=== PATIENT | male | born 1935 | race Caucasian/White ===

== ENCOUNTER 2022-06-07 08:21 | Day surgery (SDC) | payer MEDICARE, OTHER ==
[2022-06-03 12:46] LABS: BASOPHILS % (AUTO) 0.5 % (0-1); EOSINOPHILS # (AUTO) 0.2 X10'3 (0-0.9); EOSINOPHILS % (AUTO) 3.3 % (0-6); LYMPHOCYTES # (AUTO) 1.8 X10'3 (1.1-4.8); LYMPHOCYTES % (AUTO) 34.3 % (21-51); MEAN CORPUSCULAR HEMOGLOBIN 33.7 PG (27.0-31.0); MEAN CORPUSCULAR HGB CONC 33.2 g/dL (33.0-36.5); MEAN CORPUSCULAR VOLUME 101.4 FL (78-98); MEAN PLATELET VOLUME 7.9 FL (7.4-10.4); MONOCYTES # (AUTO) 0.7 X10'3 (0-0.9); MONOCYTES % (AUTO) 12.6 % (2-12); NEUTROPHILS # (AUTO) 2.6 X10'3 (1.8-7.7); NEUTROPHILS % (AUTO) 49.3 % (42-75); PRE OP HEMATOCRIT 34.6 % (42.0-52.0); PRE OP HEMOGLOBIN 11.5 g/dL (14.0-17.9); PRE OP PLATELET COUNT 172 X10'3 (140-440); RED BLOOD COUNT 3.41 X10'6 (4.70-6.10); RED CELL DISTRIBUTION WIDTH 12.7 % (11.5-14.5)
[2022-06-03 13:01] LABS: ALBUMIN 3.6 G/DL (3.4-5.0); ALKALINE PHOSPHATASE 65 IU/L (46-116); BLOOD UREA NITROGEN 17 MG/DL (7-18); BUN/CREATININE RATIO 17.5 (5.4-32.0); CALCIUM 9.2 MG/DL (8.5-10.1); CHLORIDE 107 MMOL/L (99-107); CREATININE 0.97 MG/DL (0.60-1.10); PRE OP ALT 21 U/L (30-65); PRE OP ANION GAP 7 (8-16); PRE OP AST 19 U/L (10-37); PRE OP BILIRUB, TOTAL 0.5 MG/DL (0.0-1.0); PRE OP GLUCOSE 93 MG/DL (70-104); PRE OP POTASSIUM 4.7 MMOL/L (3.4-5.1); PRE OP SODIUM 141 MMOL/L (135-145); TOTAL CARBON DIOXIDE 26.9 MMOL/L (24-32); TOTAL PROTEIN 7.3 G/DL (6.4-8.2); eGFR 73 ML/MIN
[~2022-06-07] VITALS: Ht 180.3 cm; Wt 123.0 kg
[2022-06-07] VITALS (8 sets, daily range): BP systolic 92–116; BP diastolic 53–65
[~2022-06-07 08:21] MED LIST: ATOR20TA66 PO; BETA1TAB18 PO; CHOL20002 PO; CYAN-34 PO; FINA5TAB11 PO; FLUT15.810 BOTHNARES; LEVO25TA7 PO; LISI40TA13 PO; MULT-1085 PO; ceFAZolin inj. 3,000 MG in normal saline 100ml IV soln 100 ML IV ONE; famotidine 20mg tablet PO ONE; ringers solution, lacted 1,000 ML IV SCH
[2022-06-07] MEDS ORDERED: BUPIVAcaine 0.5% inj/PF 30 ML ONE (10:59)
[2022-06-07] MEDS ORDERED: LIDOcaine 0.5% (5mg/ml) 50ml vial ONE (11:02)
[2022-06-07] MEDS ORDERED: fentaNYL/PF 50MCG/1 ML 2ML syringe ONE (11:04)
[2022-06-07] MEDS ORDERED: midazolam 1 mg/ML 2ml injection ONE ×2 (11:29→11:30)
[2022-06-07] MEDS ORDERED: BUPIVAcaine 0.5% inj/PF 30 ml vial IJ ONE (11:30)
--- NOTE | 2022-06-07 11:50 | NUR ---
Received from OR via , accompanied by Anesthesiologist BENITA AND OR NURSE and report given by Anesthesiolgist. PT IS A/O X4. DENIES PAIN OR DISCOMFORT. NATANAEL WRAP TO LEFT ELBOW AND LEFT WRIST. ICE APPLIED. Addendum: 06/07/22 at 1246 by Marlyn Tirado RN Amended: Links added.
--- NOTE | 2022-06-07 13:00 | NUR ---
I HAVE REVIEWED D/C INSTRUCTIONS WITH PATIENT AND THEY HAVE VERBALIZED UNDERSTANDING OF INSTRUCTIONS. PATIENT D/C HOME WITH ALL BELONGINGS AND FAMILY GAVE TRANSPORT Addendum: 06/07/22 at 1356 by Marlyn Tirado RN Amended: Links added.
== END 2022-06-07 13:00 | disposition home or self-care (01) ==
LOC: PAS 08:21
PROVIDERS: ATTEND Orthopaedic Surgery Hand Surgery
DX: G56.02 Carpal tunnel syndrome, left upper limb (principal); G56.22 Lesion of ulnar nerve, left upper limb; I10 Essential (primary) hypertension; I73.9 Peripheral vascular disease, unspecified; Z79.899 Other long term (current) drug therapy; Z98.890 Other specified postprocedural states; Z96.653 Presence of artificial knee joint, bilateral; Z87.891 Personal history of nicotine dependence; M19.90 Unspecified osteoarthritis, unspecified site
CPT/HCPCS: 36415; 64718; 64721; 80053; 82948; 85025; 93005; J0690; J2250; J3010; J3490; J7030; J7120; S0020; Z7506; Z7512; A4215; A6449

== ENCOUNTER 2023-01-03 10:17 | Outpatient (CLI) | payer OTHER ==
[~2023-01-03 10:17] MED LIST changes: -ceFAZolin inj. 3,000 MG in normal saline 100ml IV soln 100 ML IV ONE; -famotidine 20mg tablet PO ONE; -ringers solution, lacted 1,000 ML IV SCH
[2023-01-03] MEDS ORDERED: IODIXANOL 320 MG/ML INFUS..BTL 100ML IV ONE (11:21)
== END 2023-01-03 23:59 | disposition home or self-care (01) ==
LOC: RAD 10:17
PROVIDERS: ATTEND Internal Medicine Cardiovascular Disease
DX: I35.8 Other nonrheumatic aortic valve disorders (principal); R06.02 Shortness of breath; I65.29 Occlusion and stenosis of unspecified carotid artery; I70.0 Atherosclerosis of aorta
CPT/HCPCS: 71046; 71275; 74174; 94010; 94727; 94729; J3490; Q9967

== ENCOUNTER 2023-01-09 11:52 | Outpatient (CLI) | payer OTHER ==
[2023-01-03 10:57] LABS: BASOPHILS % (AUTO) 0.4 % (0-1); EOSINOPHILS # (AUTO) 0.1 X10'3 (0-0.9); HEMATOCRIT 35.2 % (42.0-52.0); HEMOGLOBIN 11.8 g/dl (14.0-17.9); LYMPHOCYTES # (AUTO) 1.5 X10'3 (1.1-4.8); LYMPHOCYTES % (AUTO) 29.5 % (21-51); MEAN CORPUSCULAR HEMOGLOBIN 33.3 PG (27.0-31.0); MEAN CORPUSCULAR HGB CONC 33.4 g/dL (33.0-36.5); MEAN CORPUSCULAR VOLUME 99.9 FL (78-98); MEAN PLATELET VOLUME 7.6 FL (7.4-10.4); MONOCYTES # (AUTO) 0.6 X10'3 (0-0.9); MONOCYTES % (AUTO) 11.7 % (2-12); NEUTROPHILS # (AUTO) 2.9 X10'3 (1.8-7.7); NEUTROPHILS % (AUTO) 56.4 % (42-75); PLATELET COUNT 168 X10'3 (140-440); RED BLOOD COUNT 3.53 X10'6 (4.70-6.10); RED CELL DISTRIBUTION WIDTH 13.5 % (11.5-14.5); WHITE BLOOD COUNT 5.1 X10'3 (4.5-11.0)
[2023-01-03 11:05] LABS: APTT 27 SECONDS (22-32)
[2023-01-03 11:16] LABS: ALANINE AMINOTRANSFERASE 25 U/L (12-78); ALBUMIN 3.8 G/DL (3.4-5.0); ALKALINE PHOSPHATASE 69 IU/L (46-116); ANION GAP 9 (8-16); ASPARTATE AMINO TRANSFERASE 23 U/L (10-37); BILIRUBIN,TOTAL 0.9 MG/DL (0.1-1.0); BLOOD UREA NITROGEN 22 MG/DL (7-18); BUN/CREATININE RATIO 18.2 (10.0-20.0); CALCIUM 9.2 MG/DL (8.5-10.1); CHLORIDE 105 MMOL/L (99-107); CREATININE 1.21 MG/DL (0.60-1.10); GLUCOSE 96 MG/DL (70-104); POTASSIUM 4.2 MMOL/L (3.5-5.1); SODIUM 139 MMOL/L (135-145); TOTAL CARBON DIOXIDE 25.5 MMOL/L (24-32); TOTAL PROTEIN 7.5 G/DL (6.4-8.2); eGFR 57 ML/MIN
[~2023-01-09] VITALS: Ht 180.3 cm; Wt 119.3 kg
[2023-01-09 12:39] LABS: BASOPHILS % (AUTO) 0.4 % (0-1); EOSINOPHILS # (AUTO) 0.1 X10'3 (0-0.9); HEMATOCRIT 35.5 % (42.0-52.0); HEMOGLOBIN 11.9 g/dl (14.0-17.9); LYMPHOCYTES # (AUTO) 1.7 X10'3 (1.1-4.8); LYMPHOCYTES % (AUTO) 35.4 % (21-51); MEAN CORPUSCULAR HEMOGLOBIN 33.6 PG (27.0-31.0); MEAN CORPUSCULAR HGB CONC 33.6 g/dL (33.0-36.5); MEAN PLATELET VOLUME 7.4 FL (7.4-10.4); MONOCYTES # (AUTO) 0.7 X10'3 (0-0.9); MONOCYTES % (AUTO) 14.4 % (2-12); NEUTROPHILS # (AUTO) 2.2 X10'3 (1.8-7.7); NEUTROPHILS % (AUTO) 46.8 % (42-75); PLATELET COUNT 172 X10'3 (140-440); RED BLOOD COUNT 3.55 X10'6 (4.70-6.10); RED CELL DISTRIBUTION WIDTH 13.2 % (11.5-14.5); WHITE BLOOD COUNT 4.8 X10'3 (4.5-11.0)
[2023-01-09 12:50] LABS: APTT 27 SECONDS (22-32)
[2023-01-09 12:57] LABS: ALBUMIN 3.9 G/DL (3.4-5.0); ANION GAP 8 (8-16); BLOOD UREA NITROGEN 19 MG/DL (7-18); BUN/CREATININE RATIO 18.8 (10.0-20.0); CHLORIDE 106 MMOL/L (99-107); CHOLESTEROL 143 MG/DL (0-200); CREATININE 1.01 MG/DL (0.60-1.10); GLUCOSE 97 MG/DL (70-104); HDL CHOLESTEROL 48 MG/DL (35-60); LDL CHOLESTEROL 75 MG/DL (50-100); POTASSIUM 4.5 MMOL/L (3.5-5.1); SODIUM 141 MMOL/L (135-145); TOTAL CARBON DIOXIDE 27.4 MMOL/L (24-32); TRIGLYCERIDES 62 MG/DL (20-135); eGFR 70 ML/MIN
[2023-01-09 13:36] VITALS: BP 123/53
--- NOTE | 2023-01-09 13:40 | NUR ---
Patient and Carol were in the [facility] clinic today to consult with Dr. Alfred Selby and Dr. Garza. [facility] Walk test completed. Vital signs measured. Patient education reviewed and questions answered.
== END 2023-01-09 23:59 | disposition home or self-care (01) ==
LOC: TAVR 11:52
PROVIDERS: ATTEND Internal Medicine Cardiovascular Disease
DX: Z01.810 Encounter for preprocedural cardiovascular examination (principal); I35.0 Nonrheumatic aortic (valve) stenosis; R06.02 Shortness of breath; I65.29 Occlusion and stenosis of unspecified carotid artery; E78.5 Hyperlipidemia, unspecified; I10 Essential (primary) hypertension
CPT/HCPCS: 36415; 80048; 80053; 80061; 83880; 85025; 85610; 85730

== ENCOUNTER 2023-01-14 11:55 | Day surgery (SDC) | payer OTHER ==
[~2023-01-14] VITALS: Ht 180.3 cm; Wt 118.6 kg
[2023-01-14] MEDS ORDERED: normal saline 1,000 ML IV SCH (12:10)
[2023-01-14] MEDS ORDERED: diphenhydrAMINE 25mg capsule PO PRN (12:10)
[2023-01-14] MEDS ORDERED: LORazepam 0.5 MG tablet PO PRN (12:10)
[2023-01-14 12:13] VITALS: BP 118/57
[2023-01-14] MEDS ORDERED: CLOP75TA34 PO (12:43)
[2023-01-14] MEDS ORDERED: ATOR40TA PO (12:43)
[2023-01-14] MEDS ORDERED: FLO0.4C PO (12:44)
[2023-01-14] MEDS ORDERED: verapamil 2.5 mg/ml inj IV ONE (14:47)
[2023-01-14] MEDS ORDERED: fentaNYL/PF 50MCG/1 ML 2ML syringe ONE ×2 (14:47→15:50)
[2023-01-14] MEDS ORDERED: heparin 1,000unit/ml 10ml vial 10 ML ONE ×2 (14:47→16:23)
[2023-01-14] MEDS ORDERED: midazolam 1 mg/ML 2ml injection ONE ×4 (14:47→16:37)
[2023-01-14] MEDS ORDERED: LIDOcaine 1% (10mg/ml) 2ml vial ONE (14:47)
[2023-01-14] MEDS ORDERED: iohexol 350MG/ML 100ml bottle IV ONE ×4 (14:47→16:49)
[2023-01-14] MEDS ORDERED: nitroGLYCERIN-Tridil 50MG/D5W 250 ML IV ONE (14:48)
[2023-01-14 16:10] LABS: ISTAT HGB ART 10.9 g/dl (14.0-17.9); ISTAT Hct ART 32 %PCV (42-52); ISTAT O2 SATURATION ARTERIAL 93 % (95-98); ISTAT SOURCE ART
[2023-01-14] MEDS ORDERED: heparin 1,000 UNITS/NS 500ml 500 ML ONE (16:14)
[2023-01-14] MEDS ORDERED: aspirin 325mg tablet ONE (17:01)
[2023-01-14] MEDS ORDERED: clopidogrel 300mg tablet ONE (17:01)
[2023-01-14 17:28] VITALS: BP 122/54
[2023-01-14 17:44] VITALS: BP 138/70
[2023-01-14 17:58] VITALS: BP 119/56
[2023-01-14] MEDS ORDERED: HYDROcodone/acetaminophen 10/325mg tab PO PRN (18:00)
[2023-01-14] MEDS ORDERED: HYDROcodone/acetaminophen 5mg/325mg tablet PO PRN (18:00)
[2023-01-14 18:14] VITALS: BP 139/58
[2023-01-14 18:28] VITALS: BP 132/64
[2023-01-15 08:12] LABS: ISTAT Hct MIX 32 %PCV (42-52); ISTAT O2 SATURATION MIX VENOUS 62 % (60-80); ISTAT SOURCE VEN
== END 2023-01-14 19:12 | disposition home or self-care (01) ==
LOC: SSTAY O 11:55
PROVIDERS: ATTEND Student in an Organized Health Care Education/Training Program
DX: I08.0 Rheumatic disorders of both mitral and aortic valves (principal); I10 Essential (primary) hypertension; E78.5 Hyperlipidemia, unspecified; E66.9 Obesity, unspecified; Z68.36 Body mass index [BMI] 36.0-36.9, adult; E03.9 Hypothyroidism, unspecified; I87.2 Venous insufficiency (chronic) (peripheral); E53.8 Deficiency of other specified B group vitamins; E55.9 Vitamin D deficiency, unspecified; H54.8 Legal blindness, as defined in USA; Z85.46 Personal history of malignant neoplasm of prostate; Z86.73 Personal history of transient ischemic attack (TIA), and cerebral infarction without residual deficits; Z79.899 Other long term (current) drug therapy; Z79.01 Long term (current) use of anticoagulants
CPT/HCPCS: 82803; 85014; 93456; 99152; 99153; C1874; C9600; J1644; J2250; J3010; J3490; J7030; Q0163; Q9967; A6258; A6449; C1725; C1751; C1769; C1894

== ENCOUNTER 2023-07-21 06:40 | Day surgery (SDC) | payer OTHER ==
[2023-07-18 10:39] LABS: BASOPHILS % (AUTO) 0.3 % (0-1); EOSINOPHILS # (AUTO) 0.1 X10'3 (0-0.9); EOSINOPHILS % (AUTO) 2.3 % (0-6); LYMPHOCYTES # (AUTO) 1.4 X10'3 (1.1-4.8); LYMPHOCYTES % (AUTO) 24.8 % (21-51); MEAN CORPUSCULAR HEMOGLOBIN 34.5 PG (27.0-31.0); MEAN CORPUSCULAR VOLUME 101.5 FL (78-98); MEAN PLATELET VOLUME 8.1 FL (7.4-10.4); MONOCYTES # (AUTO) 0.6 X10'3 (0-0.9); MONOCYTES % (AUTO) 11.5 % (2-12); NEUTROPHILS # (AUTO) 3.4 X10'3 (1.8-7.7); NEUTROPHILS % (AUTO) 61.1 % (42-75); PRE OP HEMATOCRIT 32.6 % (42.0-52.0); PRE OP HEMOGLOBIN 11.1 g/dL (14.0-17.9); PRE OP PLATELET COUNT 154 X10'3 (140-440); PRE OP WHITE BLOOD COUNT 5.6 10'3 (4.8-10.8); RED BLOOD COUNT 3.21 X10'6 (4.70-6.10); RED CELL DISTRIBUTION WIDTH 13.7 % (11.5-14.5)
[2023-07-18 10:56] LABS: ALBUMIN 3.7 G/DL (3.4-5.0); ALBUMIN/GLOBULIN RATIO 0.9 (1.1-1.5); ALKALINE PHOSPHATASE 64 IU/L (46-116); BLOOD UREA NITROGEN 26 MG/DL (7-18); CALCIUM 9.1 MG/DL (8.5-10.1); CHLORIDE 106 MMOL/L (99-107); CREATININE 1.18 MG/DL (0.60-1.10); PRE OP ALT 19 U/L (30-65); PRE OP ANION GAP 5 (8-16); PRE OP AST 28 U/L (10-37); PRE OP BILIRUB, TOTAL 1.2 MG/DL (0.0-1.0); PRE OP GLUCOSE 95 MG/DL (70-104); PRE OP POTASSIUM 4.6 MMOL/L (3.4-5.1); PRE OP SODIUM 139 MMOL/L (135-145); TOTAL CARBON DIOXIDE 27.9 MMOL/L (24-32); TOTAL PROTEIN 7.6 G/DL (6.4-8.2); eGFR 58 ML/MIN
[2023-07-21] VITALS (9 sets, daily range): BP systolic 104–132; BP diastolic 57–87; PULSE 69–97; RESP 11–16; TEMP 97.8; O2SAT 92–99
[~2023-07-21] VITALS: Ht 180.3 cm; Wt 122.1 kg
[~2023-07-21 06:40] MED LIST changes: +ASPI-529 PO; -ATOR20TA66 PO; +ATOR40TA PO; -BETA1TAB18 PO; -CYAN-34 PO; +CYAN-50 PO; +FLO0.4C PO; -FLUT15.810 BOTHNARES; +VIT1TAB.13; +cefazolin 2gm/D5W 100mL 100 ML IV ONE; +famotidine 20mg tablet PO ONE; +ringers solution, lacted 1,000 ML IV SCH
[2023-07-21] MEDS ORDERED: proCHLORperazine 10 MG/2 ml inj IV PRN (08:25)
[2023-07-21] MEDS ORDERED: labetalol 20mg/4ml (5mg/ml) syringe IV PRN (08:25)
[2023-07-21] MEDS ORDERED: meperidine/PF 25mg/ml syringe IV PRN ×3 (08:25)
[2023-07-21] MEDS ORDERED: hydrALAZINE 20mg/ml inj. IV PRN (08:25)
[2023-07-21] MEDS ORDERED: ringers solution, lacted 1,000 ML IV SCH (08:25)
[2023-07-21] MEDS ORDERED: ondansetron/PF 4mg/2ml inj IV PRN (08:25)
[2023-07-21] MEDS ORDERED: morphine 2 MG/ML inj. syringe IV PRN (08:25)
[2023-07-21] MEDS ORDERED: morphine 4 MG/ML inj SYRINge IV PRN (08:25)
[2023-07-21] MEDS ORDERED: acetaminophen 1,000mg/100ml IV 100 ML IV ONE (08:25)
[2023-07-21] MEDS ORDERED: BUPIVAcaine/PF 2.5mg/ml (0.25%) 10ml vial ONE ×2 (09:14→09:39)
[2023-07-21] MEDS ORDERED: sevoflurane 250ml liquid IH ONE (09:18)
[2023-07-21] MEDS ORDERED: ondansetron/PF 4mg/2ml inj ONE (09:18)
[2023-07-21] MEDS ORDERED: midazolam 1 mg/ML 2ml injection ONE (09:21)
[2023-07-21] MEDS ORDERED: fentaNYL/PF 50MCG/1 ML 2ML syringe ONE (09:21)
[2023-07-21] MEDS ORDERED: LIDOcaine 0.5% (5mg/ml) 50ml vial ONE (09:41)
[2023-07-21] MEDS ORDERED: dexamethasone sod phosphate 4mg/ml inj. ONE (09:41)
[2023-07-21] MEDS ORDERED: propofol inj 20 ML IV ONE (09:41)
== END 2023-07-21 10:54 | disposition home or self-care (01) ==
LOC: PAS 06:40
PROVIDERS: ATTEND Orthopaedic Surgery Hand Surgery
DX: G56.01 Carpal tunnel syndrome, right upper limb (principal); G56.21 Lesion of ulnar nerve, right upper limb; I10 Essential (primary) hypertension; N40.0 Benign prostatic hyperplasia without lower urinary tract symptoms; I73.9 Peripheral vascular disease, unspecified; M19.90 Unspecified osteoarthritis, unspecified site; Z87.891 Personal history of nicotine dependence; Z86.73 Personal history of transient ischemic attack (TIA), and cerebral infarction without residual deficits; Z85.46 Personal history of malignant neoplasm of prostate; Z79.890 Hormone replacement therapy; Z79.891 Long term (current) use of opiate analgesic; Z79.899 Other long term (current) drug therapy; Z96.653 Presence of artificial knee joint, bilateral; Z98.890 Other specified postprocedural states; Z80.3 Family history of malignant neoplasm of breast; Z80.0 Family history of malignant neoplasm of digestive organs
CPT/HCPCS: 36415; 64718; 64721; 80053; 82948; 85025; J0690; J1100; J2250; J2405; J2704; J3010; J3490; J7030; J7120; Z7506; Z7512; A4215; A6449

== ENCOUNTER 2024-03-06 11:09 | Emergency (ER) | payer OTHER, MEDICARE ==
[~2024-03-06] VITALS: Ht 180.3 cm; Wt 120.5 kg
[~2024-03-06 11:09] MED LIST changes: -cefazolin 2gm/D5W 100mL 100 ML IV ONE; -famotidine 20mg tablet PO ONE; -ringers solution, lacted 1,000 ML IV SCH
[2024-03-06 11:28] LABS: BASOPHILS % (AUTO) 0.1 % (0-1); EOSINOPHILS # (AUTO) 0.1 X10'3 (0-0.9); HEMATOCRIT 27.9 % (42.0-52.0); HEMOGLOBIN 9.3 g/dl (14.0-17.9); LYMPHOCYTES # (AUTO) 0.7 X10'3 (1.1-4.8); LYMPHOCYTES % (AUTO) 11.1 % (21-51); MEAN CORPUSCULAR HEMOGLOBIN 34.5 PG (27.0-31.0); MEAN CORPUSCULAR HGB CONC 33.2 g/dL (33.0-36.5); MEAN CORPUSCULAR VOLUME 103.9 FL (78-98); MEAN PLATELET VOLUME 8.1 FL (7.4-10.4); MONOCYTES # (AUTO) 0.8 X10'3 (0-0.9); MONOCYTES % (AUTO) 12.5 % (2-12); NEUTROPHILS # (AUTO) 4.9 X10'3 (1.8-7.7); NEUTROPHILS % (AUTO) 75.3 % (42-75); PLATELET COUNT 122 X10'3 (140-440); RED BLOOD COUNT 2.69 X10'6 (4.70-6.10); RED CELL DISTRIBUTION WIDTH 15.3 % (11.5-14.5); WHITE BLOOD COUNT 6.5 X10'3 (4.5-11.0)
[2024-03-06 11:39] LABS: ALANINE AMINOTRANSFERASE 17 U/L (12-78); ALBUMIN 3.5 G/DL (3.4-5.0); ALKALINE PHOSPHATASE 76 IU/L (46-116); ANION GAP 11 (8-16); ASPARTATE AMINO TRANSFERASE 30 U/L (10-37); BILIRUBIN,TOTAL 1.8 MG/DL (0.1-1.0); BLOOD UREA NITROGEN 18 MG/DL (7-18); BUN/CREATININE RATIO 19.8 (10.0-20.0); CALCIUM 8.8 MG/DL (8.5-10.1); CHLORIDE 104 MMOL/L (99-107); CREATININE 0.91 MG/DL (0.60-1.10); GLUCOSE 103 MG/DL (70-104); POTASSIUM 4.4 MMOL/L (3.5-5.1); SODIUM 140 MMOL/L (135-145); TOTAL CARBON DIOXIDE 25.1 MMOL/L (24-32); TOTAL PROTEIN 6.9 G/DL (6.4-8.2); eCRCL 60 ML/MIN; eGFR 79 ML/MIN
[2024-03-06 11:47] LABS: PRO BRAIN NATRIURETIC PEPTIDE 2353 PG/ML (0-450)
[2024-03-06] MEDS ORDERED: DOXY50TA16 PO (13:47)
[2024-03-06] MEDS: CefTRIAXone/D5W-Rocephin 1gm 50 ML IV ONE (13:58)
[2024-03-06 14:10] LABS: OCCULT BLOOD STOOL NEGATIVE (Neg)
[2024-03-06 14:39] VITALS: BP 100/56; PULSE 81; RESP 17; TEMP 99.4; O2SAT 97
[2024-03-09] MEDS ORDERED: DOXY100T67 PO (09:32)
== END 2024-03-06 14:40 | disposition home or self-care (01) ==
LOC: ER 11:09
DX: J40 Bronchitis, not specified as acute or chronic (principal); R09.1 Pleurisy; D64.9 Anemia, unspecified; I48.91 Unspecified atrial fibrillation; I10 Essential (primary) hypertension; Z79.82 Long term (current) use of aspirin; Z79.899 Other long term (current) drug therapy; Z98.890 Other specified postprocedural states; Z72.89 Other problems related to lifestyle; Z85.89 Personal history of malignant neoplasm of other organs and systems; Z20.822 Contact with and (suspected) exposure to COVID-19
CPT/HCPCS: 36415; 71045; 80053; 82272; 83880; 84145; 84484; 85025; 87811; 93005; 96365; 99285; J0696

== ENCOUNTER 2024-03-31 21:06 | Inpatient (IN) | payer MEDICARE, OTHER ==
[~2024-03-31] VITALS: Ht 180.3 cm; Wt 127.3 kg
[~2024-03-31 21:06] MED LIST changes: +DOXY100T67 PO; +DOXY50TA16 PO
[2024-03-31 21:55] LABS: BASOPHILS # (AUTO) 0.1 X10'3 (0-0.2); EOSINOPHILS # (AUTO) 0.1 X10'3 (0-0.9); EOSINOPHILS % (AUTO) 2.3 % (0-6); HEMATOCRIT 28.2 % (42.0-52.0); HEMOGLOBIN 9.2 g/dl (14.0-17.9); LYMPHOCYTES # (AUTO) 0.9 X10'3 (1.1-4.8); LYMPHOCYTES % (AUTO) 15.4 % (21-51); MEAN CORPUSCULAR HEMOGLOBIN 33.8 PG (27.0-31.0); MEAN CORPUSCULAR HGB CONC 32.7 g/dL (33.0-36.5); MEAN CORPUSCULAR VOLUME 103.5 FL (78-98); MEAN PLATELET VOLUME 7.5 FL (7.4-10.4); MONOCYTES # (AUTO) 0.7 X10'3 (0-0.9); MONOCYTES % (AUTO) 12.4 % (2-12); NEUTROPHILS # (AUTO) 4.1 X10'3 (1.8-7.7); NEUTROPHILS % (AUTO) 68.9 % (42-75); PLATELET COUNT 147 X10'3 (140-440); RED BLOOD COUNT 2.73 X10'6 (4.70-6.10); RED CELL DISTRIBUTION WIDTH 16.9 % (11.5-14.5)
[2024-03-31 22:20] LABS: ALANINE AMINOTRANSFERASE 70 U/L (12-78); ALBUMIN 2.9 G/DL (3.4-5.0); ALBUMIN/GLOBULIN RATIO 0.8 (1.1-1.5); ALKALINE PHOSPHATASE 119 IU/L (46-116); ANION GAP 4 (8-16); ASPARTATE AMINO TRANSFERASE 42 U/L (10-37); BILIRUBIN,TOTAL 1.2 MG/DL (0.1-1.0); BLOOD UREA NITROGEN 16 MG/DL (7-18); BUN/CREATININE RATIO 15.2 (10.0-20.0); CALCIUM 8.5 MG/DL (8.5-10.1); CHLORIDE 107 MMOL/L (99-107); CREATININE 1.05 MG/DL (0.60-1.10); GLUCOSE 91 MG/DL (70-104); POTASSIUM 4.4 MMOL/L (3.5-5.1); SODIUM 140 MMOL/L (135-145); TOTAL CARBON DIOXIDE 28.8 MMOL/L (24-32); TOTAL PROTEIN 6.4 G/DL (6.4-8.2); eCRCL 52 ML/MIN; eGFR 67 ML/MIN
[2024-03-31 22:22] LABS: PRO BRAIN NATRIURETIC PEPTIDE 1912 PG/ML (0-450)
[2024-03-31] MEDS: furosemide 10 MG/1 ML 10ml inj IV ONE (23:10)
[2024-04-01] VITALS (12 sets, daily range): BP systolic 90–154; BP diastolic 55–101; PULSE 63–93; RESP 13–20; TEMP 96.9–98.2; O2SAT 95–99
[2024-04-01] MEDS: diltiazem 5mg/ml 5ml inj. IV ONE (00:38)
[2024-04-01] MEDS: magnesium sulf-water 2g/50mL 50 ML IV ONE (00:38)
[2024-04-01] MEDS: diltiazem-NS 100mg/100ml 100 ML IV SCH (00:45)
[2024-04-01] MEDS ORDERED: magnesium hydroxide 30ml (MOM) UD suspension PO PRN (01:05)
[2024-04-01] MEDS ORDERED: potassium Cl 20 mEq SR tablet PO PRN ×2 (01:05)
[2024-04-01] MEDS ORDERED: magnesium Cl slow-release 64mg tablet PO PRN (01:05)
[2024-04-01] MEDS ORDERED: potassium Cl 40MEQ/1/2NS 520ml 520 ML IV PRN (01:05)
[2024-04-01] MEDS ORDERED: mag hydrox/Alum hydrox/simeth 30ml oral suspension PO PRN (01:05)
[2024-04-01] MEDS ORDERED: magnesium sulf-water 2g/50mL 50 ML IV PRN (01:05)
[2024-04-01] MEDS ORDERED: magnesium sulf-water 4G/100mL 100 ML IV PRN (01:05)
[2024-04-01] MEDS ORDERED: morphine 2 MG/ML inj. syringe IV PRN (01:05)
[2024-04-01] MEDS ORDERED: ondansetron/PF 4mg/2ml inj IV PRN (01:05)
[2024-04-01] MEDS ORDERED: acetaminophen 325mg tablet PO PRN (01:05)
[2024-04-01 01:38] LABS: BILIRUBIN,URINE NEGATIVE (Neg); CLARITY,URINE CLEAR (Clear); COLOR,URINE YELLOW (Yellow); GLUCOSE, URINE NEGATIVE (Neg); KETONES,URINE NEGATIVE (Neg); LEUKOCYTE ESTERASE ,URINE NEGATIVE (Neg); NITRITES, URINE NEGATIVE (Neg); OCCULT BLOOD,URINE NEGATIVE (Neg); PROTEIN,URINE NEGATIVE (Neg); UROBILINOGEN,URINE 0.2 E.U/dL (0.2-1.0)
[2024-04-01 01:40] LABS: UA COLLECTION TYPE NON-SPECIFIED
[2024-04-01 02:37] LABS: PHOSPHORUS 3.8 MG/DL (2.3-4.5)
[2024-04-01] MEDS: heparin, porcine 5000 units/ml vial SQ SCH (03:18)
[2024-04-01] MEDS: ipratropium/albuterol 3ml nebule NEB PRN (04:06)
[2024-04-01 04:55] LABS: THYROID STIMULATING HORMONE 4.31 ulU/ml (0.34-4.50)
[2024-04-01] MEDS: docusate sod 100mg capsule PO SCH (07:58)
[2024-04-01] MEDS: K and/or MAG REPLACEMENT MC SCH (07:58)
[2024-04-01] MEDS: furosemide 40mg/4ml inj IV SCH (08:02)
[2024-04-01] MEDS: apixaban 5mg tablet PO SCH (11:12)
[2024-04-01] MEDS: metoprolol tartrate 25mg tablet PO SCH (13:30)
[2024-04-01] MEDS ORDERED: diltiazem 30mg tablet PO SCH (14:00)
[2024-04-01] MEDS: tamsulosin 0.4mg capsule PO SCH (20:03)
[2024-04-01] MEDS: atorvastatin 20mg tablet PO SCH (20:04)
[2024-04-02 02:00] VITALS: BP 99/58; PULSE 71; RESP 16; TEMP 97.4; O2SAT 95
[2024-04-02 06:00] VITALS: BP 100/62; PULSE 57; RESP 20; TEMP 97.4; O2SAT 93
[2024-04-02 07:47] LABS: BASOPHILS % (AUTO) 0.3 % (0-1); EOSINOPHILS # (AUTO) 0.2 X10'3 (0-0.9); EOSINOPHILS % (AUTO) 2.7 % (0-6); HEMATOCRIT 29.4 % (42.0-52.0); HEMOGLOBIN 9.6 g/dl (14.0-17.9); LYMPHOCYTES # (AUTO) 1.1 X10'3 (1.1-4.8); LYMPHOCYTES % (AUTO) 17.7 % (21-51); MEAN CORPUSCULAR HEMOGLOBIN 33.7 PG (27.0-31.0); MEAN CORPUSCULAR HGB CONC 32.6 g/dL (33.0-36.5); MEAN CORPUSCULAR VOLUME 103.4 FL (78-98); MEAN PLATELET VOLUME 7.9 FL (7.4-10.4); MONOCYTES # (AUTO) 0.8 X10'3 (0-0.9); MONOCYTES % (AUTO) 12.3 % (2-12); NEUTROPHILS # (AUTO) 4.1 X10'3 (1.8-7.7); PLATELET COUNT 153 X10'3 (140-440); RED BLOOD COUNT 2.84 X10'6 (4.70-6.10); RED CELL DISTRIBUTION WIDTH 16.4 % (11.5-14.5); WHITE BLOOD COUNT 6.2 X10'3 (4.5-11.0)
[2024-04-02] MEDS: lisinopril 20mg tablet PO SCH (08:00)
[2024-04-02 08:05] LABS: ALANINE AMINOTRANSFERASE 57 U/L (12-78); ALBUMIN 2.9 G/DL (3.4-5.0); ALBUMIN/GLOBULIN RATIO 0.8 (1.1-1.5); ALKALINE PHOSPHATASE 115 IU/L (46-116); ANION GAP 4 (8-16); ASPARTATE AMINO TRANSFERASE 33 U/L (10-37); BILIRUBIN,TOTAL 1.3 MG/DL (0.1-1.0); BLOOD UREA NITROGEN 18 MG/DL (7-18); CALCIUM 8.4 MG/DL (8.5-10.1); CHLORIDE 104 MMOL/L (99-107); CHOL/HDL RATIO 2.3 (0.00-4.99); CHOLESTEROL 88 MG/DL (0-200); CREATININE 1.06 MG/DL (0.60-1.10); GLUCOSE 87 MG/DL (70-104); HDL CHOLESTEROL 39 MG/DL (35-60); LDL CHOLESTEROL 43 MG/DL (50-100); SODIUM 138 MMOL/L (135-145); TOTAL CARBON DIOXIDE 30.3 MMOL/L (24-32); TOTAL PROTEIN 6.6 G/DL (6.4-8.2); TRIGLYCERIDES 44 MG/DL (20-135); eCRCL 51 ML/MIN; eGFR 66 ML/MIN
[2024-04-02] MEDS: furosemide 20MG tablet PO SCH (09:00)
[2024-04-02 09:42] VITALS: BP 95/60
[2024-04-02] MEDS: aspirin 81mg tab.chew PO SCH (09:49)
[2024-04-02] MEDS: levoTHYROXINE 25mcg tablet PO SCH (09:50)
[2024-04-02] MEDS: multivitamins, therapeutics tablet PO SCH (09:51)
[2024-04-02] MEDS: cyanocobalamin 500mcg tablet PO SCH (09:51)
[2024-04-02 10:45] VITALS: PULSE 72; RESP 18; O2SAT 96
[2024-04-02 11:00] VITALS: BP 106/64; PULSE 79; RESP 19; TEMP 98.2; O2SAT 96
[2024-04-02] MEDS: furosemide 20 MG/2 ML vial IV SCH (11:00)
[2024-04-02 11:02] VITALS: BP 95/60
[2024-04-02] MEDS ORDERED: METO-539 PO (11:08)
[2024-04-02] MEDS ORDERED: FURO-150 PO (11:08)
[2024-04-02] MEDS ORDERED: APIX5TAB3 PO (13:23)
== END 2024-04-02 14:05 | disposition home or self-care (01) | DRG 291 ==
LOC: ER 21:07 → ED HOLD 04-01 01:09 → PCU 3S 04-01 10:11
PROVIDERS: ADMIT Internal Medicine Pulmonary Disease; ATTEND Internal Medicine
DX: I11.0 Hypertensive heart disease with heart failure (principal); I50.33 Acute on chronic diastolic (congestive) heart failure; J96.01 Acute respiratory failure with hypoxia; I48.91 Unspecified atrial fibrillation; E03.9 Hypothyroidism, unspecified; Z96.653 Presence of artificial knee joint, bilateral; Z20.822 Contact with and (suspected) exposure to COVID-19; D53.9 Nutritional anemia, unspecified; Z79.82 Long term (current) use of aspirin; Z79.899 Other long term (current) drug therapy; Z86.73 Personal history of transient ischemic attack (TIA), and cerebral infarction without residual deficits
CPT/HCPCS: 36415; 71045; 80053; 80061; 81003; 83036; 83605; 83735; 83880; 84100; 84132; 84443; 84484; 85025; 87040; 87081; 87502; 87503; 87811; 93005; 93306; 94640; 94760; 96365; 96375; 97116; 97161; 97530; 97535; 99285; A6590; G0378; J1644; J1940; J3490